=== PATIENT | female | born 2000 ===

== ENCOUNTER → 2023-10-04 | Outpatient (CLI) | payer BC, OTHER ==
[2023-10-04 17:24] LABS: Source, Urine Voided
[2023-10-04 19:17] LABS: Appearance, Urine Clear (Clear); Bilirubin, Urine Neg (Neg); Blood, Urine Neg (Neg); Color, Urine Yellow (P-Yellow); Glucose Qualitative, Urine Neg (Neg); Ketones, Urine Neg (Neg); Leukocyte Esterase, Urine 1+ (Neg); Nitrite, Urine Neg (Neg); Protein, Urine Neg (Neg); Urobilinogen, Urine NORM (Normal)
[2023-10-04 19:24] LABS: Bacteria Few /hpf; Red Blood Cells, Urine 0-2 /hpf (0-2); Squamous Epithelial Cells Few /hpf (Few)
== END ==
LOC: LAB 15:30 → LAB SHORT 15:30
PROVIDERS: Registered Nurse Community Health
DX: R30.0 Dysuria (principal)
CPT/HCPCS: 81001; 87086